=== PATIENT | male | born 1955 | race Caucasian/White ===

== ENCOUNTER → 2016-09-06 | Outpatient (CLI) | payer BC | LOC: COL.RAD 07:09 | DX: R74.8 Abnormal levels of other serum enzymes (principal) ==

== ENCOUNTER → 2019-02-11 | Outpatient (CLI) | payer BC | LOC: COL.CARD 06:43 | DX: R07.89 Other chest pain (principal); I10 Essential (primary) hypertension ==

== ENCOUNTER → 2019-02-20 | Outpatient (CLI) | payer BC ==
[~2019-02-20] VITALS: Ht 175.3 cm; Wt 89.5 kg
[~2019-02-20] MED LIST: ASPIRIN E.C. 8181 MG PO; BENICAR40 MG PO; CELEXA 20MG20 MG/TAB PO; DESYREL 100MG100 MG PO; TOPROL XL 25MG25 MG PO; ZYLOPRIM 300MG300 MG PO
[2019-02-20 06:06] VITALS: BP 152/88; PULSE 52
== END ==
LOC: COL.CARD 05:45
DX: R07.9 Chest pain, unspecified (principal)
CPT/HCPCS: A9500